=== PATIENT | female | born 1950 | race Caucasian/White ===

== ENCOUNTER → 2018-03-02 | Outpatient (CLI) | payer MEDICARE, OTHER ==
[2014-11-19 15:00] VITALS: BP 132/83
[~2018-03-02] MED LIST: ATOR40TA59 PO; CITA20TA6 PO; GADOBUTROL 7.5 MMOL/7.5 ML VIAL IV ONE; GLIM4TAB2 PO; LISI-334 PO; MELO15TA23 PO; META-21 PO; METF10003 PO; NIAC500T PO; OMEP20CA9 PO
--- NOTE | 2018-03-02 16:28 | KCIC ---
MRI of the Brain without and with Contrast 03/02/2018 Clinical History: Recurrent headaches and dizziness. History of small cell lung cancer. Technique: Unenhanced T1-weighted sagittal and axial, T2-weighted axial and coronal and FLAIR, gradient echo and diffusion-weighted axial images of the brain were obtained. After the intravenous administration of 7 cc of Gadavist, enhanced T1-weighted axial, sagittal and coronal images of the brain were obtained. Findings: No previous imaging studies are available for comparison. There is generalized parenchymal atrophy. Patchy, confluent and multiple focal areas of abnormally increased signal intensity are seen within the periventricular and subcortical white matter of both cerebral hemispheres on the FLAIR and T2-weighted images consistent with areas of fairly extensive small vessel ischemic disease. No acute parenchymal abnormality is seen. No abnormal area of contrast enhancement is noted. No extra-axial fluid collection is seen. There is no MRI evidence of acute ischemia/infarction. Mild mucosal thickening in seen scattered throughout the ethmoid air cells bilaterally. There are small to moderate-sized bilateral mastoid effusions. Normal flow voids are seen within the major vascular structures surrounding the brain parenchyma. Impression: No acute parenchymal abnormality is seen. Electronically signed by: Avtar Ibanez MD (03/02/2018 4:24 PM) [email or web address]
== END | disposition home or self-care (01) ==
LOC: KCIC MRI 13:16
PROVIDERS: ATTEND Family Medicine
DX: R51 Headache (principal); R42 Dizziness and giddiness; I10 Essential (primary) hypertension; E78.00 Pure hypercholesterolemia, unspecified; E03.9 Hypothyroidism, unspecified; M19.90 Unspecified osteoarthritis, unspecified site; E11.9 Type 2 diabetes mellitus without complications; Z87.891 Personal history of nicotine dependence
CPT/HCPCS: 70553; 82565

== ENCOUNTER → 2018-11-08 | Outpatient (CLI) | payer MEDICARE, OTHER ==
[2014-11-19 15:00] VITALS: BP 132/83
[~2018-11-08] MED LIST changes: -GADOBUTROL 7.5 MMOL/7.5 ML VIAL IV ONE; -METF10003 PO; +METF10007 PO; +OMEP20CA10 PO; -OMEP20CA9 PO
--- NOTE | 2018-11-08 17:46 | KCIC ---
LUMBAR SPINE MIN 4V History: Five-view lumbar spine HISTORY: Low back pain for one year. No prior for comparison. Bone demineralization. Multilevel degenerative disc disease of the lower thoracic and lumbar spine with loss of disc height, vacuum and marginal spurring. There may be transitional anatomy at the lumbosacral junction. Vertebral body height is maintained. Degenerative facet joint changes are seen. The aorta is calcified and tortuous. IMPRESSION: Multilevel degenerative disc disease. Electronically signed by: Boone Borrero MD (11/08/2018 5:43 PM) [id number]
--- NOTE | 2018-11-08 17:57 | KCIC ---
HIP LEFT 2 VIEW History: Left hip pain and lower back pain for about a year.. Mild degenerative changes with spurring at the left hip. There are enthesophytes about the visualized hemipelvis. No evidence of acute fracture. No aggressive bone destruction. No dislocation. Vascular calcifications are noted. IMPRESSION: No evidence of acute fracture or dislocation. Degenerative change. Electronically signed by: Boone Borrero MD (11/08/2018 5:55 PM) [id number]
== END | disposition home or self-care (01) ==
LOC: KCIC 15:25
PROVIDERS: ATTEND Family Medicine
DX: M51.35 Other intervertebral disc degeneration, thoracolumbar region (principal); M16.12 Unilateral primary osteoarthritis, left hip; M81.0 Age-related osteoporosis without current pathological fracture; M46.06 Spinal enthesopathy, lumbar region; M76.892 Other specified enthesopathies of left lower limb, excluding foot; I70.0 Atherosclerosis of aorta; Q25.46 Tortuous aortic arch
CPT/HCPCS: 72110; 73502